=== PATIENT | male | born 1935 | race Caucasian/White ===

== ENCOUNTER 2017-10-17 20:52 | Emergency (ER) | payer MEDICARE, OTHER ==
[2017-10-17 22:39] LABS: BASO % 0.1 % (0.0-1.0); EOS % 0.1 % (0.0-3.0); HEMATOCRIT 36.4 % (42.0-52.0); HEMOGLOBIN 11.8 g/dl (13.5-17.5); IMMATURE GRANULOCYTE % 0.8 % (0-3.0); LYMPH # 0.6 10^3/uL (1.5-4.5); LYMPH % 3.6 % (24.0-44.0); MEAN CORPUSCULAR HEMOGLOBIN 29.8 pg (27.0-33.0); MEAN CORPUSCULAR HGB CONC 32.4 g/dl (32.0-36.5); MEAN CORPUSCULAR VOLUME 91.9 fl (80.0-96.0); MONO # 0.5 10^3/uL (0.0-0.8); MONO % 3.4 % (0.0-5.0); NEUTROPHILS # 14.2 10^3/uL (1.8-7.7); PLATELET COUNT, AUTOMATED 175 10^3/uL (150-450); RED BLOOD COUNT 3.96 10^6/uL (4.30-6.10); RED CELL DISTRIBUTION WIDTH 12.7 % (11.5-14.5); WHITE BLOOD COUNT 15.4 10^3/uL (4.0-10.0)
[2017-10-17 22:53] LABS: KETONE, URINE AUTO RFX NEGATIVE (NEGATIVE); LEUKOCYTE ESTERASE UR AUTO RFX NEGATIVE (NEGATIVE); MUCUS, URINE RFX MODERATE (NEGATIVE); NITRITE, URINE AUTO RFX NEGATIVE (NEGATIVE); RBC, URINE AUTO RFX 6 /HPF (0-3); SPECIFIC GRAVITY UR AUTO RFX 1.025 (1.002-1.035); SQUAM EPITHELIAL CELL UR AURFX 1 /HPF (0-6); WBC, URINE AUTO RFX 9 /HPF (0-3)
[2017-10-17 22:55] LABS: ALBUMIN 2.2 GM/DL (3.2-5.2); ALBUMIN/GLOBULIN RATIO 0.48 (1.00-1.93); ALKALINE PHOSPHATASE 472 U/L (45-117); ALT/SGPT 89 U/L (12-78); ANION GAP 9 MEQ/L (8-16); AST/SGOT 77 U/L (7-37); BILIRUBIN,DIRECT 1.6 MG/DL (0.0-0.2); BILIRUBIN,TOTAL 2.1 MG/DL (0.2-1.0); BLOOD UREA NITROGEN 28 MG/DL (7-18); CALCIUM LEVEL 8.4 MG/DL (8.8-10.2); CARBON DIOXIDE LEVEL 31 MEQ/L (21-32); CHLORIDE LEVEL 93 MEQ/L (98-107); CREATININE FOR GFR 1.21 MG/DL (0.70-1.30); GLOMERULAR FILTRATION RATE > 60.0 (>35); GLUCOSE, FASTING 215 MG/DL (70-100); POTASSIUM SERUM 4.5 MEQ/L (3.5-5.1); SODIUM LEVEL 133 MEQ/L (136-145); TOTAL PROTEIN 6.8 GM/DL (6.4-8.2)
[2017-10-17 23:08] LABS: INR 1.47
[2017-10-17 23:09] LABS: PARTIAL THROMBOPLASTIN TIME 31.9 SECONDS (25.4-37.6)
[2017-10-18] MEDS ORDERED: ISOVUE-370 76% 100ML VIAL (Q9967) As Ordered ×2
[2017-10-18] MEDS: METOPROLOL 5 MG/5 ML VIAL IV ×2 (00:01)
[2017-10-18] MEDS: NS 1,000 ML IV ×2 (00:01)
[2017-10-18 00:03] LABS: FREE THYROXINE INDEX 3.8 % (1.4-3.8); LIPASE 71 U/L (73-393); T UPTAKE 38 % (33-40); THYROID STIMULATING HORMONE 0.359 uIU/ML (0.358-3.740)
[2017-10-18] MEDS ORDERED: METOPROLOL 5 MG/5 ML VIAL IV ×2 (00:36)
[2017-10-18] MEDS ORDERED: METOPROLOL TART 25 MG TABLET PO ×2 (00:45)
[2017-10-18] MEDS: DIGOXIN INJ 0.5 MG/2 ML AMP (J1160) IV ×2 (00:55)
[2017-10-18] MEDS: METOPROLOL TART 25 MG TABLET PO ×4 (02:25→03:15)
[2017-10-18] MEDS: AMIODARONE HCL 150 MG/100 ML PREMIXED BAG (NEXTERONE) IV ×2 (06:07)
[2017-10-18] MEDS: AMIODARONE 200 MG TAB (PACERONE) PO ×2 (06:40)
[2017-10-18] MEDS: SOTALOL 40MG PER 1/2 TABLET PO ×2 (07:37)
== END 2017-10-18 08:01 | disposition short-term general hospital (02) ==
LOC: M ED 20:52
DX: D49.0 Neoplasm of unspecified behavior of digestive system (principal); I48.2 Chronic atrial fibrillation; S01.81XA Laceration without foreign body of other part of head, initial encounter; W19.XXXA Unspecified fall, initial encounter; Y92.096 Garden or yard of other non-institutional residence as the place of occurrence of the external cause; I10 Essential (primary) hypertension; E11.9 Type 2 diabetes mellitus without complications; E78.5 Hyperlipidemia, unspecified; Z79.899 Other long term (current) drug therapy; Z79.01 Long term (current) use of anticoagulants; Z79.84 Long term (current) use of oral hypoglycemic drugs
CPT/HCPCS: Q9967

== ENCOUNTER → 2017-10-17 | Outpatient (CLI) | payer MEDICARE, OTHER ==
[2017-10-17 17:49] LABS: ALBUMIN 2.3 GM/DL (3.2-5.2); ALBUMIN/GLOBULIN RATIO 0.48 (1.00-1.93); ALKALINE PHOSPHATASE 462 U/L (45-117); ALT/SGPT 95 U/L (12-78); AMYLASE 13 U/L (25-115); ANION GAP 11 MEQ/L (8-16); AST/SGOT 87 U/L (7-37); BLOOD UREA NITROGEN 23 MG/DL (7-18); CALCIUM LEVEL 8.7 MG/DL (8.8-10.2); CARBON DIOXIDE LEVEL 30 MEQ/L (21-32); CHLORIDE LEVEL 93 MEQ/L (98-107); CREATININE FOR GFR 1.09 MG/DL (0.70-1.30); GLOMERULAR FILTRATION RATE > 60.0 (>35); GLUCOSE, FASTING 192 MG/DL (70-100); LIPASE 86 U/L (73-393); POTASSIUM SERUM 4.5 MEQ/L (3.5-5.1); SODIUM LEVEL 134 MEQ/L (136-145); TOTAL PROTEIN 7.1 GM/DL (6.4-8.2)
[2017-10-17 18:02] LABS: BASO % 0.2 % (0.0-1.0); EOS % 0.1 % (0.0-3.0); HEMATOCRIT 39.7 % (42.0-52.0); HEMOGLOBIN 13.1 g/dl (13.5-17.5); LYMPH # 0.6 10^3/uL (1.5-4.5); LYMPH % 3.4 % (24.0-44.0); MEAN CORPUSCULAR HEMOGLOBIN 30.7 pg (27.0-33.0); MONO # 0.6 10^3/uL (0.0-0.8); MONO % 3.5 % (0.0-5.0); NEUTROPHILS # 15.9 10^3/uL (1.8-7.7); NEUTROPHILS % 91.8 % (36.0-66.0); PLATELET COUNT, AUTOMATED 187 10^3/uL (150-450); RED BLOOD COUNT 4.27 10^6/uL (4.30-6.10); WHITE BLOOD COUNT 17.3 10^3/uL (4.0-10.0)
== END ==
LOC: M WUC 15:25
DX: R11.2 Nausea with vomiting, unspecified (principal)
CPT/HCPCS: 82150